=== PATIENT | male | born 1955 | race Caucasian/White ===

== ENCOUNTER 2017-01-04 08:40 | Day surgery (SDC) | payer OTHER ==
[2017-01-01 15:40] VITALS: BMI 21.1
[~2017-01-04 08:40] MED LIST: LEVOFLOXACIN 500 MG PREMIX BAG IVPB ONE
[2017-01-04] MEDS ORDERED: DEXAMETHASONE SOD PHOSPHATE 4 MG/1 ML VIAL ONE (10:57)
[2017-01-04] MEDS ORDERED: KETOROLAC TROMETHAMINE 30 MG/1 ML VIAL ONE (10:57)
[2017-01-04] MEDS ORDERED: LEVOFLOXACIN 500 MG IVPB 100 ML IVPB ONE (10:57)
[2017-01-04] MEDS ORDERED: MIDAZOLAM HCL 2 MG/2 ML SINGLE DOSE VIAL ONE ×2 (10:58)
[2017-01-04] MEDS ORDERED: LEVOFLOXACIN 500 MG PREMIX BAG IVPB ONE (11:06)
[2017-01-04] MEDS ORDERED: PROMETHAZINE HCL 25 MG/1 ML VIAL IVPUSH PRN (11:39)
[2017-01-04] MEDS ORDERED: oxyCODONE HCL 5 MG TABLET PO PRN (11:39)
[2017-01-04] MEDS ORDERED: ONDANSETRON 4 MG/2 ML VIAL IVPUSH PRN (11:39)
--- NOTE | 2017-01-04 11:47 | OP ---
Operative Note - Note: Operative Date: 01/04/17 Pre-Operative Diagnosis: right renal stone Operation: right eswl Post-Operative Diagnosis: Same as Pre-op Surgeon: Jay Jean-Baptiste Anesthesia: General Operative Report Dictated: Yes
[2017-01-04 12:16] VITALS: TEMP 97.5
--- NOTE | 2017-01-04 12:47 | OP ---
DATE OF OPERATION: 01/04/2017 PREOPERATIVE DIAGNOSIS: Right renal stone. POSTOPERATIVE DIAGNOSIS: Right renal stone. PROCEDURE: Right extracorporeal shock-wave lithotripsy. ATTENDING: Leigh Ann Douglas MD ANESTHESIA: General. OPERATION: The patient was brought in the operating room, placed in supine position on the operating room table. Ultrasonography and fluoroscopy were performed. A 9-mm right lower pole stone was identified. There is a question of a right ureteral stone. There was no hydronephrosis noted on ultrasound. The right renal stone was seen on x-ray. General anesthesia and preoperative antibiotics were administered. Then 3000 impulses at 18 joules of power was administered to the stone, with excellent fragmentation. No complications were noted. Patient tolerated this procedure very well. The disposition of the patient was to the recovery room. LEIGH ANN DOUGLAS M.D. /[id number]
[2017-01-04 14:08] VITALS: BP 129/76; PULSE 60
== END 2017-01-04 14:13 | disposition home or self-care (01) ==
LOC: JASU-SURG 08:40
PROVIDERS: ATTEND Urology
PROC: 0TF3XZZ Fragmentation in Right Kidney Pelvis, External Approach (ICD-10-PCS; principal; 2017-01-04 10:15)
DX: N20.0 Calculus of kidney (principal)
CPT/HCPCS: 94760

== ENCOUNTER 2018-10-12 09:16 | Emergency (ER) | payer OTHER ==
[2018-10-12 09:31] VITALS: BP 122/77; PULSE 95; TEMP 98.1
[2018-10-12] MEDS ORDERED: DEXAMETHASONE LIQUID 0.5 MG/5 ML 240 ML BULK BOTTLE PO ONE (10:31)
[2018-10-12] MEDS ORDERED: guaiFENesin/D-METHORPHAN HB 10 ML UNIT-DOSE CUPS PO ONE (10:31)
--- NOTE | 2018-10-12 10:32 | PDOC ---
History of Present Illness - General Chief Complaint: Cold Symptoms Stated Complaint: COLD SYMPTOMS Time Seen by Provider: 10/12/18 09:45 History Source: Patient Exam Limitations: No Limitations - History of Present Illness Initial Comments: 10/12/18 10:30 Patient is a 63-year-old male with past medical history of asthma, who presents to the ER for 3 days of cough, runny nose, congestion and chest tightness. Patient states that once he starts coughing it is hard to stop and catch his breath. He states that his chest hurts from all the coughing. He denies chest pain when he is not coughing. He states he is tried taking some over-the- counter medication with little relief of his symptoms. Denies fevers, chills, sore throat, shortness of breath, chest pain, nausea, vomiting and diarrhea. Patient is been hospitalized in the past presently 4 years ago for his asthma. He has never been intubated. Past History - Travel Traveled outside of the country in the last 30 days: No Close contact w/someone who was outside of country & ill: No - Past Medical History Allergies/Adverse Reactions: Allergies Allergy/AdvReac Type Severity Reaction Status Date / Time No Known Allergies Allergy Verified 04/18/15 22:56 Home Medications: Ambulatory Orders Tamsulosin HCl 0.4 mg PO DAILY 01/04/17 Albuterol 0.083% Nebulizer Yuly [Ventolin 0.083% Nebulizer Soln -] 1 neb NEB Q4H #20 vial 10/12/18 Guaifenesin Dm [Robitussin Dm -] 10 ml PO Q8H #200 ml 10/12/18 Methylprednisolone [Medrol Dose [place]] 4 mg PO ASDIR #21 tablet 10/12/18 Anemia: No Asthma: Yes Cancer: No Cardiac Disorders: No CVA: No COPD: No CHF: No Dementia: No Diabetes: No GI Disorders: No Disorders: Yes (KIDNEY STONES) HTN: No Hypercholesterolemia: Yes Liver Disease: No Seizures: No Thyroid Disease: No - Surgical History GI Surgery: No - Immunization History Immunization Up to Date: Yes - Suicide/Smoking/Psychosocial Hx Smoking History: Never smoked Have you smoked in the past 12 months: No Number of Cigarettes Smoked Daily: 0 Information on smoking cessation initiated: No Hx Alcohol Use: No Drug/Substance Use Hx: No Substance Use Type: None Review of Systems - Review of Systems Able to Perform ROS?: Yes Comments:: 10/12/18 10:29 CONSTITUTIONAL: Absent: fever, chills, diaphoresis, generalized weakness, malaise, loss of appetite HEENT: Present: congestion Absent: rhinorrhea, throat pain, throat swelling, difficulty swallowing, mouth swelling, ear pain, eye pain, visual Changes CARDIOVASCULAR: Absent: chest pain, loss of consciousness, palpitations, irregular heart rate, peripheral edema RESPIRATORY: Present: cough, shortness of breath Absent: dyspnea with exertion, orthopnea, wheezing, stridor, hemoptysis GASTROINTESTINAL: Absent: abdominal pain, abdominal distension, nausea, vomiting, diarrhea, constipation, melena, hematochezia GENITOURINARY: Absent: dysuria, frequency, urgency, hesitancy, hematuria, flank pain, genital pain MUSCULOSKELETAL: Absent: myalgia, arthralgia, joint swelling SKIN: Absent: rash, itching, pallor HEMATOLOGIC/IMMUNOLOGIC: Absent: easy bleeding, easy bruising, lymphadenopathy, frequent infections ENDOCRINE: Absent: unexplained weight gain, unexplained weight loss, heat intolerance, cold intolerance NEUROLOGIC: Absent: headache, focal weakness or paresthesias, dizziness, unsteady gait, seizure, mental status changes, bladder or bowel incontinence PSYCHIATRIC: Absent: anxiety, depression, suicidal or homicidal ideation, hallucinations. Is the patient limited Bengali proficient: No *Physical Exam - Vital Signs Last Vital Signs Temp Pulse Resp BP Pulse Ox 98.1 F 95 H 16 122/77 96 10/12/18 09:28 10/12/18 09:28 10/12/18 09:28 10/12/18 09:28 10/12/18 09:28 - Physical Exam Comments: 10/12/18 10:29 GENERAL: Well developed, well nourished. Awake and alert. No acute distress. HEENT: Normocephalic, atraumatic. PERRLA, EOMI. No conjunctival pallor. Sclera are non- icteric. Moist mucous membranes. Oropharynx is clear. NECK: Supple. Full ROM. No JVD. Carotid pulses 2+ and symmetric, without bruits. No thyromegaly. No lymphadenopathy. CARDIOVASCULAR: Regular rate and rhythm. No murmurs, rubs, or gallops. Distal pulses are 2+ and symmetric. PULMONARY: No evidence of respiratory distress. Lungs with expiratory wheezing bilaterally. No rales or rhonchi. ABDOMINAL: Soft. Non-tender. Non-distended. No rebound or guarding. No organomegaly. Normoactive bowel sounds. MUSCULOSKELETAL Normal range of motion at all joints. No bony deformities or tenderness. No CVA tenderness. EXTREMITIES: No cyanosis. No clubbing. No edema. No calf tenderness. SKIN: Warm and dry. Normal capillary refill. No rashes. No jaundice. NEUROLOGICAL: Alert, awake, appropriate. Cranial nerves 2-12 intact. No deficits to light touch and temperature in face, upper extremities and lower extremities. No motor deficits in the in face, upper extremities and lower extremities. Normoreflexic in the upper and lower extremities. Normal speech. Toes are down- going bilaterally. Gait is normal without ataxia. PSYCHIATRIC: Cooperative. Good eye contact. Appropriate mood and affect. Moderate Sedation - Procedure Monitoring Vital Signs: Procedure Monitoring Vital Signs Temperature 98.1 F 10/12/18 09:28 Pulse Rate 95 H 10/12/18 09:28 Respiratory Rate 16 10/12/18 09:28 Blood Pressure 122/77 10/12/18 09:28 O2 Sat by Pulse Oximetry (%) 96 10/12/18 09:28 Medical Decision Making - Medical Decision Making 10/12/18 10:58 Pt is a 63 y/o M with PMH of asthma who presents to the ED with 3 days of productive cough and wheezing On exam pt with expiratory wheezing. Unable to take deep breath without coughing Bronchitis vs asthma exacerbation vs PNA Steroids and duonebs given CXR re-evaluate 10/12/17 11:54 Pt not found after x-ray, eloped 10/12/18 12:51 Pt found in the ED verticle area after previously thought to have eloped. Chest x-ray is negative for pneumonia Most likely a bronchitis at this time Will treat with supportive therapy Repeat lung sounds with minimal wheezing after two duonebs DC home with PCP follow up I discussed the physical exam findings, ancillary test results and final diagnoses with the patient. I answered all of the patient's questions. The patient was satisfied with the care received and felt comfortable with the discharge plan and treatment plan. The Patient agrees to follow up with the primary care physician/specialist within 24-72 hours. Return precautions were given. *DC/Admit/Observation/Transfer Diagnosis at time of Disposition: Bronchitis - Discharge Dispostion Disposition: HOME Condition at time of disposition: Stable - Prescriptions Prescriptions: Albuterol 0.083% Nebulizer Yuly [Ventolin 0.083% Nebulizer Soln -] 1 neb NEB Q4H #20 vial Guaifenesin Dm [Robitussin Dm -] 10 ml PO Q8H #200 ml Methylprednisolone [Medrol Dose [place]] 4 mg PO ASDIR #21 tablet - Referrals Referrals: Manny Carranza [Primary Care Provider] - - Patient Instructions Printed Discharge Instructions: DI for Acute Bronchitis Additional Instructions: You have bronchitis Your x-ray was negative for pneumonia Use your nebulizer machine every 4 hours until your symptoms resolve Take the steroid pack as directed Take the cough syrup every 8 hours as needed for cough Follow up with your primary care doctor this week Return to the ED for shortness of breath, difficulty breathing, fever, or if you have any changes in your symptoms - Post Discharge Activity Forms/Work/School Notes: Back to Work
[2018-10-12] MEDS ORDERED: guaiFENesin/D-METHORPHAN HB 10 ML UNIT-DOSE CUPS ONE (10:39)
[2018-10-12] MEDS ORDERED: DEXAMETHASONE SOD PHOSPHATE 10 MG/1 ML VIAL ONE (10:39)
[2018-10-12] MEDS ORDERED: ALBUTEROL SO4 2.5/IPRATROPIUM 0.5 INH SOL 3 ML VIAL.NEB. NEB ONE (10:39)
[2018-10-12] MEDS: ALBUTEROL SO4 2.5/IPRATROPIUM 0.5 INH SOL 3 ML VIAL.NEB. NEB SCH ×3 (10:49→11:47)
== END 2018-10-12 13:51 | disposition home or self-care (01) ==
LOC: JERFT 09:16
DX: J40 Bronchitis, not specified as acute or chronic (principal); J45.909 Unspecified asthma, uncomplicated; E78.00 Pure hypercholesterolemia, unspecified
CPT/HCPCS: 71046-TC-FY; 99281-25

== ENCOUNTER 2018-12-15 11:24 | Emergency (ER) | payer OTHER ==
[2018-12-15 11:31] VITALS: BP 112/79; PULSE 91; TEMP 98.2; BMI 20.3
[2018-12-15] MEDS ORDERED: ALBUTEROL SO4 2.5/IPRATROPIUM 0.5 INH SOL 3 ML VIAL.NEB. NEB ONE ×3 (11:54→12:30)
[2018-12-15] MEDS ORDERED: predniSONE 20 MG TABLET (UD) PO ONE (11:55)
--- NOTE | 2018-12-15 11:59 | PDOC ---
History of Present Illness - General Chief Complaint: Asthma Stated Complaint: cough, hx of Asthma Time Seen by Provider: 12/15/18 11:49 History Source: Patient Exam Limitations: No Limitations - History of Present Illness Initial Comments: 12/15/18 11:56 Patient came to emergency department with worsened cough, and asthma attack. Has been using his prescribed medications with minimal resolved Timing/Duration: reports: getting worse Severity: reports: moderate, severe Associated Symptoms: reports: chest pain/soreness (pleuritic chest pain), cough , dizziness, fever/chills, nasal congestion Past History - Travel Traveled outside of the country in the last 30 days: No Close contact w/someone who was outside of country & ill: No - Past Medical History Allergies/Adverse Reactions: Allergies Allergy/AdvReac Type Severity Reaction Status Date / Time No Known Allergies Allergy Verified 12/15/18 11:31 Home Medications: Ambulatory Orders Tamsulosin HCl 0.4 mg PO DAILY 01/04/17 Albuterol 0.083% Nebulizer Yuly [Ventolin 0.083% Nebulizer Soln -] 1 neb NEB Q4H #20 vial 10/12/18 Guaifenesin Dm [Robitussin Dm -] 10 ml PO Q8H #200 ml 10/12/18 Methylprednisolone [Medrol Dose [place]] 4 mg PO ASDIR #21 tablet 10/12/18 Albuterol 0.083% Nebulizer Yuly [Ventolin 0.083% Nebulizer Soln -] 1 neb NEB Q4H PRN #30 vial 12/15/18 Azithromycin [Zithromax -] 250 mg PO UTDICT #6 tab 12/15/18 predniSONE [Deltasone -] 20 mg PO BID #8 tablet 12/15/18 Anemia: No Asthma: Yes Cancer: No Cardiac Disorders: No CVA: No COPD: No CHF: No Dementia: No Diabetes: No GI Disorders: No Disorders: Yes (KIDNEY STONES) HTN: No Hypercholesterolemia: Yes Liver Disease: No Seizures: No Thyroid Disease: No - Surgical History GI Surgery: No - Immunization History Immunization Up to Date: Yes - Suicide/Smoking/Psychosocial Hx Smoking History: Never smoked Have you smoked in the past 12 months: No Number of Cigarettes Smoked Daily: 0 Information on smoking cessation initiated: No Hx Alcohol Use: No Drug/Substance Use Hx: No Substance Use Type: None Review of Systems - Review of Systems Able to Perform ROS?: Yes Is the patient limited Armenian proficient: Yes Constitutional: Yes: Symptoms Reported, See HPI, Chills, Fever, Malaise HEENTM: Yes: Symptoms Reported, Nose Congestion Respiratory: Yes: Symptoms reported, See HPI, Cough, Orthopnea, Wheezing Musculoskeletal: Yes: Symptoms Reported All Other Systems: Reviewed and Negative *Physical Exam - Vital Signs Last Vital Signs Temp Pulse Resp BP Pulse Ox 98.2 F 91 H 19 112/79 98 12/15/18 11:29 12/15/18 11:29 12/15/18 11:29 12/15/18 11:29 12/15/18 11:29 - Physical Exam General Appearance: Yes: Nourished, Appropriately Dressed HEENT: positive: HUBER, Normal ENT Inspection, TMs Normal (congested landmarks easily visualized), Pharynx Normal, Nasal Congestion, Rhinorrhea. negative: Pharyngeal Erythema Neck: positive: Tender, Supple Respiratory/Chest: positive: Decreased Breath Sounds (bilateral coarse inspiratory next 3 breath sounds, deep breath sounds provokes moist cough), Wheezing. negative: Lungs Clear Cardiovascular: positive: Regular Rhythm Gastrointestinal/Abdominal: positive: Tender, Soft Extremity: positive: Normal Capillary Refill, Normal Inspection, Normal Range of Motion, Tender Integumentary: positive: Dry, Warm, Pale Neurologic: positive: licensing coordinator II-XII NML intact, Fully Oriented, Alert, Normal Mood/ Affect Moderate Sedation - Procedure Monitoring Vital Signs: Procedure Monitoring Vital Signs Temperature 98.2 F 12/15/18 11:29 Pulse Rate 91 H 12/15/18 11:29 Respiratory Rate 19 12/15/18 11:29 Blood Pressure 112/79 12/15/18 11:29 O2 Sat by Pulse Oximetry (%) 98 12/15/18 11:29 ED Treatment Course - RADIOLOGY Radiology Studies Ordered: Category Date Time Status CHEST PA & LAT [RAD] Stat Radiology 12/15/18 11:55 Ordered Progress Note - Progress Note Progress Note: Chest x-ray read by radiologist note nodule density in the right upper lobe/ apices. This finding was not noted in September. This information was given to Corina at Dr. Carranza's office Medical Decision Making - Medical Decision Making 12/15/18 patient much improved after second DuoNeb, and steroid treatment. He is ready for discharge. Will and azithromycin arterial infection and patient will continue albuterol nebulizers at home *DC/Admit/Observation/Transfer Diagnosis at time of Disposition: Bronchitis - Discharge Dispostion Disposition: HOME Condition at time of disposition: Stable Decision to Admit order: No - Prescriptions Prescriptions: Albuterol 0.083% Nebulizer Yuly [Ventolin 0.083% Nebulizer Soln -] 1 neb NEB Q4H PRN #30 vial PRN Reason: Cough Azithromycin [Zithromax -] 250 mg PO UTDICT #6 tab predniSONE [Deltasone -] 20 mg PO BID #8 tablet - Referrals Referrals: Manny Carranza [Primary Care Provider] - - Patient Instructions Printed Discharge Instructions: Asthma -- Adult Additional Instructions: Rest, drink lots of fluids: Teas, water, soups, Pedialyte Saltwater gargles Steamy showers/seem to face break up mucus Avoid contact with others until fevers and cough resolved Lots of handwashing and good hygiene Continue [id number] medications for symptomatic relief Tylenol or Motrin for fever and pain Continue albuterol nebulizers every 4-6 hours for the next 2 days then as needed for continued cough Prednisone as directed until completed Azithromycin as directed Followup with private physician in one to 2 days Return to emergency department / pediatric hospital for worsened symptoms, fevers, dehydration - Post Discharge Activity Forms/Work/School Notes: Back to Work
[2018-12-15] MEDS ORDERED: predniSONE 20 MG TABLET (UD) ONE (12:01)
== END 2018-12-15 13:01 | disposition home or self-care (01) ==
LOC: JERFT 11:24
PROC: 3E0F7GC Introduction of Other Therapeutic Substance into Respiratory Tract, Via Natural or Artificial Opening (ICD-10-PCS; principal; 2018-12-15)
PROC: 3E0F7GC Introduction of Other Therapeutic Substance into Respiratory Tract, Via Natural or Artificial Opening (ICD-10-PCS; 2018-12-15)
DX: J40 Bronchitis, not specified as acute or chronic (principal)
CPT/HCPCS: 71046-TC-FY; 99281-25

== ENCOUNTER 2019-03-13 10:14 | Emergency (ER) | payer OTHER | END 2019-03-13 12:50 | disposition home or self-care (01) | LOC: FER 10:14 ==

== ENCOUNTER 2019-07-31 18:12 | Emergency (ER) | payer OTHER ==
--- NOTE | 2019-07-31 18:22 | PDOC ---
Rapid Medical Evaluation Time Seen by Provider: 07/31/19 18:19 Medical Evaluation: Allergies Allergy/AdvReac Type Severity Reaction Status Date / Time No Known Allergies Allergy Verified 03/13/19 11:03 07/31/19 18:19 CC: "My ears are clogged." also with cough PE: rhonchii bibasally Orders: labs, CXR Patient will proceed to ED for further evaluation. Discharge Disposition - Diagnosis Cough - Referrals - Patient Instructions - Post Discharge Activity
[2019-07-31 18:26] VITALS: BP 132/71; PULSE 102; TEMP 98.2; BMI 24.7
[2019-07-31] MEDS ORDERED: DEXAMETHASONE LIQUID 0.5 MG/5 ML PO ONE (19:36)
[2019-07-31] MEDS ORDERED: ALBUTEROL SO4 2.5/IPRATROPIUM 0.5 INH SOL 3 ML VIAL.NEB. NEB ONE (19:46)
[2019-07-31] MEDS ORDERED: DEXAMETHASONE SOD PHOSPHATE 10 MG/1 ML VIAL ONE (19:46)
[2019-07-31] MEDS: ALBUTEROL SO4 2.5/IPRATROPIUM 0.5 INH SOL 3 ML VIAL.NEB. NEB SCH ×4 (19:52→20:33)
--- NOTE | 2019-07-31 21:00 | PDOC ---
History of Present Illness - General Chief Complaint: Ear Problem Stated Complaint: COUGHING/EAR DISCOMFORT Time Seen by Provider: 07/31/19 18:19 - History of Present Illness Initial Comments: 07/31/19 20:58 64-year-old male with a past medical history of asthma presents for evaluation of cough and fever x5 days Past History - Past Medical History Allergies/Adverse Reactions: Allergies Allergy/AdvReac Type Severity Reaction Status Date / Time No Known Allergies Allergy Verified 07/31/19 18:20 Home Medications: Ambulatory Orders Tamsulosin HCl 0.4 mg PO DAILY 01/04/17 Albuterol 0.083% Nebulizer Yuly [Ventolin 0.083% Nebulizer Soln -] 1 neb NEB Q4H PRN #30 vial 12/15/18 Albuterol Sulfate Inhaler - [Ventolin Hfa Inhaler -] 1 - 2 inh PO QID PRN Atorvastatin Ca [Lipitor] 20 mg PO HS 03/13/19 Cholecalciferol (Vitamin D3) [Decara] 50,000 unit PO WEEKLY 03/13/19 Docusate Sodium [Colace -] 100 mg PO DAILY #30 capsule 03/13/19 Mometasone/Formoterol [Dulera 200 Mcg/5 Mcg Inhaler] 1 inh IH BID 03/13/19 Montelukast Na [Singulair -] 10 mg PO HS 03/13/19 Sennosides [Senna] 2 tab PO DAILY #30 tablet 03/13/19 Umeclidinium Willard [Incruse Ellipta] 62.5 mcg IH DAILY 03/13/19 Azithromycin [Zithromax -] 250 mg PO UTDICT #6 tab 07/31/19 Guaifenesin Dm [Mucinex Dm -] 1 tab PO BID #60 tab.er.12h 07/31/19 Anemia: No Asthma: Yes Cancer: No Cardiac Disorders: No CVA: No COPD: No CHF: No Dementia: No Diabetes: No GI Disorders: No Disorders: Yes (KIDNEY STONES) HTN: No Hypercholesterolemia: Yes Liver Disease: No Seizures: No Thyroid Disease: No - Surgical History GI Surgery: No - Immunization History Immunization Up to Date: Yes - Psycho Social/Smoking Cessation Hx Smoking History: Never smoked Have you smoked in the past 12 months: No Number of Cigarettes Smoked Daily: 0 Hx Alcohol Use: No Drug/Substance Use Hx: No Substance Use Type: None Review of Systems - Review of Systems Constitutional: Yes: Fever Respiratory: Yes: Cough *Physical Exam - Vital Signs Last Vital Signs Temp Pulse Resp BP Pulse Ox 98.2 F 102 H 99 H 132/71 94 L 07/31/19 18:20 07/31/19 18:20 07/31/19 18:20 07/31/19 18:20 07/31/19 18:20 - Physical Exam Comments: 07/31/19 20:58 GENERAL: The patient is awake, alert, and fully oriented, in no acute distress. HEAD: Normal with no signs of trauma. EYES: sclera anicteric, conjunctiva clear. ENT: Ears normal NECK: Normal range of motion LUNGS: Diffuse wheezing greater on the right than the left mild rhonchi at the right base HEART: S1 and S2 without murmur, rub or gallop. ABDOMEN: Soft, nontender, normoactive bowel sounds. No guarding, no rebound. No masses. EXTREMITIES: Normal range of motion, no edema. No clubbing or cyanosis. No cords, erythema, or tenderness. NEUROLOGICAL: Cranial nerves II through XII grossly intact. Normal speech, normal gait. PSYCH: Normal mood, normal affect. SKIN: Warm, Dry, normal turgor, no rashes or lesions noted. ED Treatment Course - Medications Given in the ED: ED Medications Discontinued Medications Generic Name Dose Route Start Last Admin Trade Name Freq PRN Reason Stop Dose Admin Albuterol/Ipratropium 1 amp 07/31/19 19:45 07/31/19 20:33 Duoneb - NEB 07/31/19 20:31 1 amp Q15M TONO Administration Dexamethasone 10 mg 07/31/19 19:36 07/31/19 19:52 Decadron Liquid - PO 07/31/19 19:37 10 mg ONCE ONE Administration Medical Decision Making - Medical Decision Making 07/31/19 20:58 Rhonchi at the right base after for duo nebs wheezing is cleared patient was given Decadron for duo nebs, will treat for bronchitis with Zithromax and Mucinex DM pulmonology follow-up Discharge - Discharge Information Problems reviewed: Yes Clinical Impression/Diagnosis: Cough, Bronchitis Condition: Stable Disposition: HOME - Admission No - Additional Discharge Information Prescriptions: Azithromycin [Zithromax -] 250 mg PO UTDICT #6 tab Guaifenesin Dm [Mucinex Dm -] 1 tab PO BID #60 tab.er.12h - Follow up/Referral Referrals: Dillon Middleton MD [Primary Care Provider] - Manny Cruz MD, MD [Staff Physician] - - Patient Discharge Instructions Additional Instructions: Please start the antibiotics tonight and take them as directed. Return to the emergency room for worsening symptoms. Please take the Mucinex as directed. Without fail please follow-up with pulmonology in 1 to 2 days for further evaluation and treatment options. Again follow-up with pulmonology in 1 to 2 days for further evaluation and treatment options and return to the emergency room should symptoms worsen - Post Discharge Activity
== END 2019-07-31 21:14 | disposition home or self-care (01) ==
LOC: JERFT 18:12
PROC: 3E0F7GC Introduction of Other Therapeutic Substance into Respiratory Tract, Via Natural or Artificial Opening (ICD-10-PCS; principal; 2019-07-31)
DX: J40 Bronchitis, not specified as acute or chronic (principal); E78.00 Pure hypercholesterolemia, unspecified; Z87.442 Personal history of urinary calculi; Z87.09 Personal history of other diseases of the respiratory system
CPT/HCPCS: 71046-TC-FY; 94640; 99282-25

== ENCOUNTER 2019-09-28 18:51 | Emergency (ER) | payer OTHER ==
[2019-09-28 18:55] VITALS: BMI 21.2
--- NOTE | 2019-09-28 19:14 | PDOC ---
History of Present Illness - General Chief Complaint: Chest Pain Stated Complaint: HEART PROBLEM Past History - Past Medical History Allergies/Adverse Reactions: Allergies Allergy/AdvReac Type Severity Reaction Status Date / Time No Known Allergies Allergy Verified 09/28/19 18:55 Home Medications: Ambulatory Orders Tamsulosin HCl 0.4 mg PO DAILY 01/04/17 Albuterol 0.083% Nebulizer Yuly [Ventolin 0.083% Nebulizer Soln -] 1 neb NEB Q4H PRN #30 vial 12/15/18 Albuterol Sulfate Inhaler - [Ventolin Hfa Inhaler -] 1 - 2 inh PO QID PRN Atorvastatin Ca [Lipitor] 20 mg PO HS 03/13/19 Cholecalciferol (Vitamin D3) [Decara] 50,000 unit PO WEEKLY 03/13/19 Docusate Sodium [Colace -] 100 mg PO DAILY #30 capsule 03/13/19 Mometasone/Formoterol [Dulera 200 Mcg/5 Mcg Inhaler] 1 inh IH BID 03/13/19 Montelukast Na [Singulair -] 10 mg PO HS 03/13/19 Sennosides [Senna] 2 tab PO DAILY #30 tablet 03/13/19 Umeclidinium [place] [Incruse Ellipta] 62.5 mcg IH DAILY 03/13/19 Azithromycin [Zithromax -] 250 mg PO UTDICT #6 tab 07/31/19 Guaifenesin Dm [Mucinex Dm -] 1 tab PO BID #60 tab.er.12h 07/31/19 predniSONE [Deltasone -] 40 mg PO DAILY 4 Days #8 tablet 09/29/19 Anemia: No Asthma: Yes Cancer: No Cardiac Disorders: No CVA: No COPD: No CHF: No Dementia: No Diabetes: No GI Disorders: No Disorders: Yes (KIDNEY STONES) HTN: No Hypercholesterolemia: Yes Liver Disease: No Seizures: No Thyroid Disease: No - Surgical History GI Surgery: No - Immunization History Immunization Up to Date: Yes - Psycho Social/Smoking Cessation Hx Smoking History: Never smoked Have you smoked in the past 12 months: No Number of Cigarettes Smoked Daily: 0 Hx Alcohol Use: No Drug/Substance Use Hx: No Substance Use Type: None *Physical Exam - Vital Signs Last Vital Signs Temp Pulse Resp BP Pulse Ox 98 F 94 H 18 116/72 98 09/28/19 18:52 09/28/19 18:52 09/28/19 18:52 09/28/19 18:52 09/28/19 18:52 ED Treatment Course - LABORATORY CBC & Chemistry Diagram: 09/28/19 20:05 09/28/19 20:05 Medical Decision Making - Medical Decision Making 09/28/19 21:51 HPI: Denies hx CAD, FHx CAD, hx DVT/PE, recent travel, sick contacts, surgery, immobilization, hemoptysis, calf tenderness, hormone use, fever, chills, fatigue , headache, dizziness, numbness/tingling, weakness, vision changes, leg swelling , abdominal pain, blood in stool, diarrhea, constipation, nausea, vomiting, dysuria, hematuria, confusion. ROS: Constitutional: Negative for chills, fever, fatigue, diaphoresis. HENT: Negative for sore throat, rhinorrhea, congestion. Eyes: Negative for visual disturbance. Respiratory: Positive for shortness of breath, cough, and wheezing. Cardiovascular: Positive for chest pain, palpitations. Negative for leg swelling. Gastrointestinal: Negative for abdominal pain, blood in stool, constipation, diarrhea, nausea, and vomiting. Genitourinary: Negative for dysuria, flank pain, and hematuria. Musculoskeletal: Negative for myalgias, back pain, and neck pain. Skin: Negative for rash. Neurological: Negative for light-headedness, dizziness, vertigo, syncope, weakness, numbness and headaches. Psychiatric/Behavioral: Negative for behavioral problems and confusion. PE: Gen: Alert, NAD, comfortable-appearing. HEENT: PERRL, EOMI, MMM, NCAT. No conjunctival pallor. Sclera are non-icteric. Oropharynx is clear. CV: Regular rate and rhythm. No murmurs, rubs, or gallops. No chest tenderness. PULM: No resp distress. No accessory muscle use. Sitting back at 45 degrees. + tightness, b/l diffuse expiratory wheezes. No rales, or rhonchi. ABD: soft, NT/ND, no rebound tenderness or guarding, no CVA tenderness. BACK: No TTP of c/t/l-spine. No step-offs or deformities. MSK: No bony deformities. 2+ pulses in all extremities. NEURO: AAOx3. PERRL. No gross CN deficits. Strength and sensation grossly intact throughout. EXTREMITIES: No cyanosis. No clubbing. No edema. No calf tenderness. PSYCH: Normal mood and thought pattern. SKIN: Warm and dry. Normal capillary refill. No rashes. No jaundice. MDM: Tachycardic 94, other VSS, afebrile. HEART score 3 -EKG -CXR -CBC,CMP,Coags,Cardiac profile (trop x2),Mg,Phos,Lipase -Duonebs x3 -Solumedrol 125 -Dispo: pending w/u and reassessment Pt reassessed. Significant improvement but still b/l diffuse wheezing s/p 2 duonebs. Give 3rd duonebs and reassess. 09/28/19 22:22 EKG reviewed: NSR, 73bpm, normal intervals, normal axis, no e/o acute ischemia, no priors for comparison CXR reviewed by me: no acute pathology Labs reviewed. CBC,CMP WBC 5.2 K/mm3 (4.0-10.0) 09/28/19 20:05 RBC 4.35 M/mm3 (4.00-5.60) 09/28/19 20:05 Hgb 13.2 GM/dL (11.7-16.9) 09/28/19 20:05 Hct 39.7 % (35.4-49) 09/28/19 20:05 MCV 91.2 fl (80-96) 09/28/19 20:05 MCH 30.3 pg (25.7-33.7) 09/28/19 20:05 MCHC 33.2 g/dl (32.0-35.9) 09/28/19 20:05 RDW 13.7 % (11.9-15.9) 09/28/19 20:05 Plt Count 143 K/MM3 (134-434) 09/28/19 20:05 MPV 9.5 fl (7.5-11.1) 09/28/19 20:05 Absolute Neuts (auto) 2.3 K/mm3 (1.5-8.0) 09/28/19 20:05 Neutrophils % 43.4 % (42.8-82.8) D 09/28/19 20:05 Lymphocytes % 33.5 % (8-40) D 09/28/19 20:05 Monocytes % 12.3 % (3.8-10.2) H 09/28/19 20:05 Eosinophils % 9.4 % (0-4.5) H 09/28/19 20:05 Basophils % 1.4 % (0-2.0) 09/28/19 20:05 Nucleated RBC % 0 % (0-0) 09/28/19 20:05 Sodium 141 mmol/L (136-145) 09/28/19 20:05 Potassium 3.9 mmol/L (3.5-5.1) 09/28/19 20:05 Chloride 108 mmol/L (98-107) H 09/28/19 20:05 Carbon Dioxide 28 mmol/L (21-32) 09/28/19 20:05 Anion Gap 5 MMOL/L (8-16) L 09/28/19 20:05 BUN 16.3 mg/dL (7-18) 09/28/19 20:05 Creatinine 0.8 mg/dL (0.55-1.3) 09/28/19 20:05 Est GFR (CKD-EPI)AfAm 110.96 09/28/19 20:05 Est GFR (CKD-EPI)NonAf 95.74 09/28/19 20:05 Random Glucose 83 mg/dL (74-106) 09/28/19 20:05 Calcium 8.9 mg/dL (8.5-10.1) 09/28/19 20:05 Phosphorus 2.9 mg/dL (2.5-4.9) 09/28/19 20:05 Magnesium 2.1 mg/dL (1.8-2.4) 09/28/19 20:05 Total Bilirubin 0.6 mg/dL (0.2-1) 09/28/19 20:05 AST 23 U/L (15-37) 09/28/19 20:05 ALT 38 U/L (13-61) 09/28/19 20:05 Alkaline Phosphatase 69 U/L (45-117) 09/28/19 20:05 Creatine Kinase 124 U/L (26-308) 09/28/19 20:05 Troponin I < 0.02 ng/ml (0.00-0.05) 09/28/19 20:05 Total Protein 6.6 g/dl (6.4-8.2) 09/28/19 20:05 Albumin 3.7 g/dl (3.4-5.0) 09/28/19 20:05 Lipase 132 U/L (73-393) 09/28/19 20:05 09/28/19 23:31 Pt reassessed - feeling much better, no more SOB or wheezing s/p 3 duonebs, only slight chest discomfort remaining but much improved and feels ready to go home. Lungs CTAB without wheezing, minimal tightness. Pending 2nd trop. 09/29/19 00:12 2nd trop negative. Pt safe for d/c D/c home with prednisone. Discharge - Discharge Information Problems reviewed: Yes Clinical Impression/Diagnosis: Asthma attack Condition: Improved Disposition: HOME - Admission No - Additional Discharge Information Prescriptions: predniSONE [Deltasone -] 40 mg PO DAILY 4 Days #8 tablet - Follow up/Referral Referrals: Manny Carranza [Primary Care Provider] - - Patient Discharge Instructions Patient Printed Discharge Instructions: DI for Asthma -- Adult Additional Instructions: You have been seen in the Emergency Department for your asthma attack. Take your medications as prescribed. We have sent a prescription for Prednisone to your pharmacy - take as directed. Follow up with your primary care doctor within 1 week. Return to the ED immediately if you experience chest pain, difficulty breathing , fever, passing out, or any other new or worsening symptom. - Post Discharge Activity
[2019-09-28] MEDS ORDERED: ACETAMINOPHEN 500 MG TABLET (FP) PO ONE (19:45)
[2019-09-28] MEDS ORDERED: ALBUTEROL SO4 2.5/IPRATROPIUM 0.5 INH SOL 3 ML VIAL.NEB. NEB ONE ×5 (19:46→20:30)
[2019-09-28] MEDS ORDERED: methylPREDNISolone NA SUCC 125 MG/2 ML VIAL IVPB ONE (19:49)
[2019-09-28] MEDS ORDERED: ATORVASTATIN CA 10 MG TABLET (FP) ONE (19:54)
[2019-09-28] MEDS ORDERED: ACETAMINOPHEN 325 MG TABLET (FP) ONE (19:55)
[2019-09-28] MEDS ORDERED: methylPREDNISolone NA SUCC 125 MG/2 ML VIAL ONE (20:12)
[2019-09-28 20:15] LABS: BASO % 1.4 % (0-2.0); EOS % 9.4 % (0-4.5); HEMATOCRIT 39.7 % (35.4-49); HEMOGLOBIN 13.2 GM/dL (11.7-16.9); LYMPH % 33.5 % (8-40); MCH 30.3 pg (25.7-33.7); MCHC 33.2 g/dl (32.0-35.9); MEAN CELL VOLUME 91.2 fl (80-96); MEAN PLT VOLUME 9.5 fl (7.5-11.1); MONO % 12.3 % (3.8-10.2); NEUT % 43.4 % (42.8-82.8); PLATELET COUNT 143 K/MM3 (134-434); RBC 4.35 M/mm3 (4.00-5.60); RDW 13.7 % (11.9-15.9); WHITE BLOOD COUNT 5.2 K/mm3 (4.0-10.0)
[2019-09-28 20:30] LABS: INR 1.17 (0.83-1.09); PROTHROMBIN TIME (PATIENT) 13.8 SEC (9.7-13.0)
--- NOTE | 2019-09-28 20:41 | PDOC ---
Documentation entered by Nadia Boykin SCRIBE, acting as scribe for Stella Johnson DO. Stella Johnson DO: This documentation has been prepared by the Ashutosh ugalde Joy, SCRIBE, under my direction and personally reviewed by me in its entirety. I confirm that the documentation accurately reflects all work, treatment, procedures, and medical decision making performed by me. Attending Attestation - Resident Resident Name: Sheryl Herrmann - ED Attending Attestation I have performed the following: I have examined & evaluated the patient, The case was reviewed & discussed with the resident, I agree w/resident's findings & plan, Exceptions are as noted - HPI HPI: 09/28/19 20:04 The patient is a 64 year old male with significant past medical history of asthma who presents to the ED with asthma attack for x1 week. As per patient, he has intermittent productive cough and shortness of breath. At around noon today, patient endorses he started experiencing left sided chest pain, and chest pain when he coughs. Patient adds that he went to see a brake repairer bus but was not told anything remarkable (next appointment on 09/11/19). The patient endorses that he has never had chest pain or any heart problems before. Allergies: NKA PCP: Dr. Manny Carranza - Physicial Exam PE: 09/28/19 20:39 Gen: aaox3, nad heart: +s1s2 reg lungs: coarse bs b/l, wheezing diffusely, tachypnea abd: soft, nt/nd +bs ext: no c/c/e - Medical Decision Making 09/28/19 20:40 a/p: 64yo male with asthma exacerbation x 1 week and today with L sided cp -has been coughing and cough makes the cp worse -pt with wheezing, sob, tachypnea -concern for asthma exacerbation/pna -will send labs, cxr, nebs, steroids -will monitor and reassess 09/28/19 21:34 trop neg cxr clear 09/29/19 00:10 pt feeling much better lungs cta cp resolved stable for dc to home with oral pred pt states he has plenty of albuterol and nebs at home states he will call his pmd tomorrow to arrange for follow up Heart Score/ECG Review - ECG Intrepretation Comment:: 09/28/19 21:34 sinus at 78, incomplete RBBB, abnl ekg, no acute t wave inversions
[2019-09-28 20:49] LABS: ALBUMIN 3.7 g/dl (3.4-5.0); ALK PHOS 69 U/L (45-117); ANION GAP 5 MMOL/L (8-16); BILIRUBIN,TOTAL 0.6 mg/dL (0.2-1); BLOOD UREA NITROGEN 16.3 mg/dL (7-18); CALCIUM 8.9 mg/dL (8.5-10.1); CHLORIDE 108 mmol/L (98-107); CO2 28 mmol/L (21-32); CREATININE 0.8 mg/dL (0.55-1.3); GLUCOSE,RANDOM 83 mg/dL (74-106); POTASSIUM 3.9 mmol/L (3.5-5.1); SGOT/AST 23 U/L (15-37); SGPT/ALT 38 U/L (13-61); SODIUM 141 mmol/L (136-145); TOT PROT 6.6 g/dl (6.4-8.2)
[2019-09-28 21:01] LABS: MAGNESIUM 2.1 mg/dL (1.8-2.4); PHOSPHOROUS 2.9 mg/dL (2.5-4.9)
[2019-09-29 00:28] VITALS: BP 101/66; PULSE 80; TEMP 98.1
--- NOTE | 2019-09-29 13:22 | EKG ---
Test Reason : Blood Pressure : / mmHG Vent. Rate : 078 BPM Atrial Rate : 078 BPM P-R Int : 152 ms QRS Dur : 116 ms QT Int : 418 ms P-R-T Axes : 071 060 065 degrees QTc Int : 476 ms NORMAL SINUS RHYTHM INCOMPLETE RIGHT BUNDLE BRANCH BLOCK BORDERLINE ECG WHEN COMPARED WITH ECG OF 28-SEP-2019 19:48, ST NO LONGER ELEVATED IN ANTERIOR LEADS QT HAS LENGTHENED Confirmed by JATIN COBURN, MITCH ([id number]) on 09/29/2019 1:21:58 PM Referred By: Confirmed By:MITCH STEINER MD
--- NOTE | 2019-09-29 13:22 | EKG ---
Test Reason : Blood Pressure : / mmHG Vent. Rate : 073 BPM Atrial Rate : 073 BPM P-R Int : 164 ms QRS Dur : 096 ms QT Int : 376 ms P-R-T Axes : 079 077 087 degrees QTc Int : 414 ms NORMAL SINUS RHYTHM POSSIBLE LEFT ATRIAL ENLARGEMENT NONSPECIFIC ST ABNORMALITY ABNORMAL ECG NO PREVIOUS ECGS AVAILABLE Confirmed by MITCH STEINER MD ([id number]) on 09/29/2019 1:22:01 PM Referred By: Confirmed By:MITCH STEINER MD
== END 2019-09-29 00:31 | disposition home or self-care (01) ==
LOC: JER 18:51
PROC: 3E0333Z Introduction of Anti-inflammatory into Peripheral Vein, Percutaneous Approach (ICD-10-PCS; principal; 2019-09-28)
PROC: 3E0F7GC Introduction of Other Therapeutic Substance into Respiratory Tract, Via Natural or Artificial Opening (ICD-10-PCS; 2019-09-28)
PROC: 3E0F7GC Introduction of Other Therapeutic Substance into Respiratory Tract, Via Natural or Artificial Opening (ICD-10-PCS; 2019-09-28)
PROC: 3E0F7GC Introduction of Other Therapeutic Substance into Respiratory Tract, Via Natural or Artificial Opening (ICD-10-PCS; 2019-09-28)
DX: J45.901 Unspecified asthma with (acute) exacerbation (principal); E78.00 Pure hypercholesterolemia, unspecified; Z87.442 Personal history of urinary calculi
CPT/HCPCS: 36415; 71046-TC-FY; 80053; 82550; 83690; 83735; 84100; 84484; 85025; 85610; 93005; 93010; 99284-25

== ENCOUNTER 2020-05-14 13:01 | Emergency (ER) | payer OTHER ==
--- NOTE | 2020-05-14 13:43 | TELE ---
HPI Do you have fever,cough or shortness of breath?: No - General Reason For Visit: COVID19 TESTING History Source: Care Provider Past History - Medical History Allergies/Adverse Reactions: Allergies Allergy/AdvReac Type Severity Reaction Status Date / Time No Known Allergies Allergy Verified 09/28/19 18:55 Home Medications: Ambulatory Orders Tamsulosin HCl 0.4 mg PO DAILY 01/04/17 Albuterol 0.083% Nebulizer Yuly [Ventolin 0.083% Nebulizer Soln -] 1 neb NEB Q4H PRN #30 vial 12/15/18 Albuterol Sulfate Inhaler - [Ventolin Hfa Inhaler -] 1 - 2 inh PO QID PRN 03/13/19 Atorvastatin Ca [Lipitor] 20 mg PO HS 03/13/19 Cholecalciferol (Vitamin D3) [Decara] 50,000 unit PO WEEKLY 03/13/19 Docusate Sodium [Colace -] 100 mg PO DAILY #30 capsule 03/13/19 Mometasone/Formoterol [Dulera 200 Mcg/5 Mcg Inhaler] 1 inh IH BID 03/13/19 Montelukast Na [Singulair -] 10 mg PO HS 03/13/19 Sennosides [Senna] 2 tab PO DAILY #30 tablet 03/13/19 Umeclidinium [place] [Incruse Ellipta] 62.5 mcg IH DAILY 03/13/19 Azithromycin [Zithromax -] 250 mg PO UTDICT #6 tab 07/31/19 Guaifenesin Dm [Mucinex Dm -] 1 tab PO BID #60 tab.er.12h 07/31/19 predniSONE [Deltasone -] 40 mg PO DAILY 4 Days #8 tablet 09/29/19 Anemia: No Asthma: Yes Cancer: No Cardiac Disorders: No CVA: No COPD: No CHF: No Dementia: No Diabetes: No GI Disorders: No Disorders: Yes (KIDNEY STONES) HTN: No Hypercholesterolemia: Yes Liver Disease: No Seizures: No Thyroid Disease: No - Surgical History GI Surgery: No - Immunization History Immunization Up to Date: Yes - Psycho-Social/Smoking History Smoking History: Never smoked Have you smoked in the past 12 months: No Number of Cigarettes Smoked Daily: 0 Review of Systems - Review of Systems Constitutional: No: Fever Respiratory: No: Cough *Physical Exam - Physical Exam Respiratory/Chest: negative: Respiratory Distress Discharge Diagnosis at time of Disposition: Encounter for laboratory testing for COVID-19 virus - Referrals Follow-up Referral(s): Manny Carranza [Primary Care Provider] - - Patient Instructions - Discharge Disposition: HOME Condition at time of Disposition: Stable
== END 2020-05-14 13:43 | disposition home or self-care (01) ==
LOC: JVIRT 13:01
DX: Z11.59 Encounter for screening for other viral diseases (principal)
CPT/HCPCS: Q3014-GT; U0003

== ENCOUNTER 2021-01-19 10:43 | Emergency (ER) | payer OTHER ==
[2021-01-19] MEDS ORDERED: ALBUTEROL SO4 2.5/IPRATROPIUM 0.5 INH SOL 3 ML VIAL.NEB. NEB ONE ×2 (10:47→10:51)
[2021-01-19 10:53] VITALS: BMI 21.2
[2021-01-19] MEDS ORDERED: predniSONE 20 MG TABLET (UD) PO ONE (12:27)
[2021-01-19] MEDS ORDERED: predniSONE 20 MG TABLET (UD) ONE (12:32)
[2021-01-19 13:51] VITALS: BP 128/72; PULSE 85
== END 2021-01-19 14:31 | disposition home or self-care (01) ==
LOC: JER 10:43
PROC: 3E0F7GC Introduction of Other Therapeutic Substance into Respiratory Tract, Via Natural or Artificial Opening (ICD-10-PCS; principal; 2021-01-19)
DX: J45.41 Moderate persistent asthma with (acute) exacerbation (principal)
CPT/HCPCS: 71045-TC-FY; 93005; 93010; 99285-25; C9803; U0003; U0005

== ENCOUNTER 2021-05-26 09:44 | Emergency (ER) | payer OTHER ==
[2021-05-26 09:53] VITALS: BP 127/77; PULSE 69; TEMP 98.1; BMI 21.6
[2021-05-26] MEDS ORDERED: METHOCARBAMOL 500 MG TABLET PO ONE (10:17)
[2021-05-26] MEDS ORDERED: KETOROLAC TROMETHAMINE 30 MG/1 ML VIAL IM ONE (10:17)
[2021-05-26] MEDS ORDERED: METHOCARBAMOL 500 MG TABLET ONE (10:20)
[2021-05-26] MEDS ORDERED: KETOROLAC TROMETHAMINE 30 MG/1 ML VIAL ONE (10:20)
[2021-05-26 11:46] LABS: URINE APPEARANCE CLEAR; URINE BILIRUBIN NEGATIVE (NEGATIVE); URINE COLOR YELLOW; URINE GLUCOSE (UA) NEGATIVE (NEGATIVE); URINE KETONE NEGATIVE (NEGATIVE); URINE LEUK ESTERASE NEGATIVE (NEGATIVE); URINE NITRITE NEGATIVE (NEGATIVE); URINE PROTEIN NEGATIVE (NEGATIVE); URINE UROBILINOGEN 0.2 mg/dL (0.2-1.0)
== END 2021-05-26 12:07 | disposition home or self-care (01) ==
LOC: JER 09:44
PROC: 3E0233Z Introduction of Anti-inflammatory into Muscle, Percutaneous Approach (ICD-10-PCS; principal; 2021-05-26)
DX: M62.830 Muscle spasm of back (principal)
CPT/HCPCS: 81003; 87086; 96372; 99283-25

== ENCOUNTER 2021-11-06 19:22 | Emergency (ER) | payer OTHER ==
[2021-11-06 19:42] VITALS: BP 110/78; PULSE 74; TEMP 98; BMI 21.6
[2021-11-06 20:31] LABS: CALCIUM 9.3 mg/dl (8.5-10)
[2021-11-06 20:37] LABS: ALBUMIN 3.5 g/dl (3.4-5.0); BILIRUBIN,TOTAL 0.7 mg/dl (0.2-1); CREATININE 0.8 mg/dl (0.55-1.3); TOT PROT 6.7 g/dl (6.4-8.2)
[2021-11-06 21:25] LABS: HEMATOCRIT 33.4 % (35.4-49); MEAN PLT VOLUME 8.4 fl (7.5-11.1)
[2021-11-06 21:27] LABS: BASO % 1.2 % (0-2.0); EOS % 19.8 % (0-4.5); HEMOGLOBIN 11.3 GM/dL (11.7-16.9); LYMPH % 24.9 % (8-40); MCH 30.1 pg (25.7-33.7); MEAN CELL VOLUME 88.7 fl (80-96); MONO % 7.5 % (3.8-10.2); NEUT % 46.6 % (42.8-82.8); PLATELET COUNT 297 10^3/uL (134-434); RBC 3.76 M/mm3 (4.00-5.60); RDW 13.3 % (11.9-15.9); WHITE BLOOD COUNT 7.4 K/mm3 (4.0-10.0)
== END 2021-11-06 22:01 | disposition home or self-care (01) ==
LOC: FER 19:22
DX: M79.10 Myalgia, unspecified site (principal)
CPT/HCPCS: 36415; 71046-TC-FY; 80053; 82550; 84484; 85025; 93005; 99285-25

== ENCOUNTER 2022-03-16 09:20 | Emergency (ER) | payer OTHER ==
[2022-03-16 09:41] VITALS: BP 138/82; PULSE 73; TEMP 98.4
== END 2022-03-16 11:15 | disposition home or self-care (01) ==
LOC: FER 09:20
DX: J20.9 Acute bronchitis, unspecified (principal)
CPT/HCPCS: 0241U-QW; 71045-TC-FY; 87633; 99284-25

== ENCOUNTER 2022-03-16 22:37 | Emergency (ER) | payer OTHER ==
[2022-03-16 22:50] VITALS: BP 138/74; PULSE 88; TEMP 98.6; BMI 23.4
[2022-03-17] MEDS ORDERED: AMOX TR/POT CLAV 875MG/125MG TABLETS (FP) PO ONE (00:14)
[2022-03-17] MEDS ORDERED: ACETAMINOPHEN 500 MG TABLET (FP) PO ONE (00:14)
[2022-03-17] MEDS ORDERED: AMOX TR/POT CLAV 875MG/125MG TABLETS (FP) ONE (01:12)
[2022-03-17] MEDS ORDERED: ACETAMINOPHEN 325 MG TABLET (FP) ONE (01:13)
== END 2022-03-17 01:27 | disposition home or self-care (01) ==
LOC: JER 22:37
DX: H73.011 Bullous myringitis, right ear (principal)
CPT/HCPCS: 99283-25

== ENCOUNTER 2022-05-23 09:50 | Emergency (ER) | payer OTHER ==
[2022-05-23] MEDS ORDERED: predniSONE 20 MG TABLET (UD) PO ONE (10:00)
[2022-05-23 10:03] VITALS: BP 113/71; PULSE 85; RESP 16; TEMP 98.3; BMI 20.6
[2022-05-23] MEDS: ALBUTEROL SO4 2.5/IPRATROPIUM 0.5 INH SOL 3 ML VIAL.NEB. NEB SCH ×4 (11:06→11:52)
[2022-05-23] MEDS ORDERED: predniSONE 10 MG TABLET (UD) ONE (11:44)
[2022-05-23] MEDS ORDERED: predniSONE 20 MG TABLET (UD) ONE (11:44)
[2022-05-24] MEDS ORDERED: predniSONE 20 MG TABLET (UD) PO ONE (10:00)
== END 2022-05-23 11:52 | disposition home or self-care (01) ==
LOC: JER 09:50
PROC: 3E0F7GC Introduction of Other Therapeutic Substance into Respiratory Tract, Via Natural or Artificial Opening (ICD-10-PCS; principal; 2022-05-23)
DX: J45.21 Mild intermittent asthma with (acute) exacerbation (principal)
CPT/HCPCS: 71046-TC-FY; 93005; 93010; 99284-25

== ENCOUNTER 2022-12-02 10:13 | Emergency (ER) | payer OTHER ==
[2022-12-02 10:29] VITALS: BP 124/68; PULSE 70; RESP 18; TEMP 97.5; BMI 19.6
[2022-12-02 11:58] LABS: HEMATOCRIT 39.1 % (35.4-49); HEMOGLOBIN 13.5 G/dL (11.7-16.9); MCH 31.8 pg (25.7-33.7); MCHC 34.6 g/dl (32.0-35.9); MEAN CELL VOLUME 91.7 fl (80-96); MEAN PLT VOLUME 9.7 fl (7.5-11.1); PLATELET COUNT 152.4 10^3/uL (134-434); RBC 4.26 10^6/uL (4.00-5.60); RDW 14.1 % (11.9-15.9); WHITE BLOOD COUNT 5.4 10^3/uL (4.0-10.8)
[2022-12-02 12:02] LABS: INR 1.2 (0.83-1.09); PROTHROMBIN TIME (PATIENT) 13.8 SEC (9.7-13.0)
[2022-12-02 12:09] LABS: ALBUMIN 4.1 g/dl (3.4-5.0); ALK PHOS 69 U/L (45-117); ANION GAP 11 MMOL/L (8-16); CALCIUM 9.4 mg/dl (8.5-10); CHLORIDE 103 mmol/L (98-107); CO2 26 mmol/L (21-32); CREATININE 0.6 mg/dl (0.55-1.3); GLUCOSE,RANDOM 117 mg/dl (74-106); SGOT/AST 27 U/L (15-37); SGPT/ALT 27 U/L (13-61); SODIUM 140 mmol/L (136-145); TOT PROT 7.3 g/dl (6.4-8.2)
[2022-12-02 13:05] LABS: PLATELET ESTIMATE ADEQUATE
== END 2022-12-02 13:10 | disposition home or self-care (01) ==
LOC: FER 10:13
DX: R07.89 Other chest pain (principal); Z20.822 Contact with and (suspected) exposure to COVID-19
CPT/HCPCS: 0241U-QW; 36415; 71046-TC-FY; 80053; 82550; 82553; 84484; 85027; 85610; 99284-25